=== PATIENT | female | born 1990 | race Caucasian/White ===

== ENCOUNTER 2025-01-07 16:25 | Emergency (ER) | payer OTHER, SELFPAY ==
--- OUTSIDE RECORDS SUMMARY | 2025-01-07 16:30 | XMS_ITS | Clinical Summary ---
Author Organization [facility] Address [address] [place] [address] Care Team Providers Care Fast Food Shift Lead Name Role Phone Mihir Vazquez MD Primary Care Provider [phone] Allergies Active Allergy Reactions Criticality Noted Date Comments Minocycline Hives 07/24/2021 Medications montelukast 10 MG tablet Take 10 mg by mouth daily. 03/05/2021 Active cetirizine 10 MG tablet Take 10 mg by mouth daily. Active Active Problems No known active problems Family History Medical History Relation Comments No Known Problems Father No Known Problems Mother Relation Status Comments Father Alive Mother Alive Social History Tobacco Use Types Packs/Day Years Used Date Smoking Tobacco: Never Smokeless Tobacco: Never Alcohol Use Standard Drinks/Week Comments Yes 6.7 (1 standard drink = 0.6 oz p ure alcohol) Comments No Sex and Gender Information Value Date Recorded Sex Assigned at Not on file Legal Sex Female 4:13 PM CDT Gender Identity Not on file Sexual Orientation Not on file Last Filed Vital Signs Vital Sign Reading Time Taken Comments Blood Pressure 109/63 07/24/2021 12:40 PM CDT Pulse 62 07/24/2021 12:40 PM CDT Temperature 36.3 C (97.3 F) 07/24/2021 12:40 PM CDT Respiratory Rate 16 07/24/2021 12:40 PM CDT Oxygen Saturation 99% 07/24/2021 12:40 PM CDT Inhaled Oxygen Concentration - - Weight 67.6 kg (149 lb) 07/24/2021 12:40 PM CDT Height 165.1 cm (5' 5) 07/24/2021 12:40 PM CDT Body Mass Index 24.79 07/24/2021 12:40 PM CDT Plan of Treatment Health Maintenance Due Date Last Done Comments Annual Physical 1992 Hepatitis C 09/18/2007 DTaP, Tdap and Td Vaccines ( 1 - Tdap) 2008 Hepatitis B Vaccines (1 of 3 - 19+ 3-dose series) 2008 HPV Vaccines (1 - 3-dose SCD M series) 2016 Cervical Cancer Screening Pa p with HPV Testing (Age 30 to 64) Every 5 Years 09/18/2019 Cervical Cancer Screening Pa p Smear (Age 30 to 64) Every 3 Years 04/05/2024 04/05/2021 Cervical Cancer Screening wi th HPV 04/05/2024 COVID-19 Vaccine ( - 2024-2 6 season) 2024 Influenza Adult (#1) 2024 02/27/2021, 03/10/2020, 12/12/2013 Hepatitis A Vaccines Aged Out No long er eligible based on patient's age to complete this topic Meningococcal B Vaccine Aged Out No l onger eligible based on patient's age to complete this topic Meningococcal Vaccine Aged Out No dori ronak eligible based on patient's age to complete this topic Pneumococcal Vaccine: Pediatrics (0 to 5 Years) and At-Risk Patients (6 to 49 Years) Aged Out No longer eligible b ased on patient's age to complete this topic RSV Immunizations Under 20 Months Aged Out No longer eligible b ased on patient's age to complete this topic Insurance [facility] Care Teams Fast Food Shift Lead Relationship Specialty Start Date End Date Mihri Vazquez MD [facility] [place] [address] PCP - General 07/08/13
--- OUTSIDE RECORDS SUMMARY | 2025-01-07 16:30 | XMS_ITS | Clinical Summary ---
[facility] Address [address] [place] [address] Care Team Providers Care Agricultural Economics Professor Name Role Phone Mihir Vazuqez MD Primary Care Provider + Cristiana Pérez MD Unavailable Allergies Active Allergy Reactions Criticality Noted Date Comments Minocycline Hcl Hives Medium 06/14/2018 SEVERE HIVES Oxycodone-Acetaminophen Hives Medium 06/14/2018 ITCHY Medications cetirizine (ZyrTEC) 5 mg chewable tabletIndications: Allergic Rhinitis Take 1 tablet (5 mg total) by mouth daily Active ALPRAZolam (XANAX) 0.25 mg tablet Take 1 tablet (0.25 mg total) by mouth every 8 (eight) hours as needed 4 Active dextroamphetamine- amphetamine (ADDERALL) 15 mg tablet Take 1 tablet (15 mg total) by mouth 2 (two) times a day 4 Active montelukast (SINGULAIR) 5 mg chewable tablet Take 1 tablet (5 mg total) by mouth nightly Active norethindrone-e.es tradioL-iron (Lo Loestrin Fe) 1 mg-10 mcg (24)/10 mcg (2) tablet per tabletIndications: Contraception Take 1 tablet by mouth daily 84 tablet 3 4 Active Active Problems Problem Noted Date Diagnosed Date Oral contraceptive pill surveillance 05/13/2017 Resolved Problems Problem Noted Date Diagnosed Date Resolved Date infant of 40 complet ed weeks of gestation 09/13/2022 09/08/2023 40 weeks gestation of 11/05/2020 09/08/2023 Encounters Date Type Department Care Team Description 01/03/2025 Orders Only [facility] [address] [facility] [address] [place] [address] Cristiana Pérez MD Breast pain, left (Primary Dx) 01/03/2025 Orders Only [facility] [address] [facility] [address] [place] [address] Cristiana Pérez MD Breast pain, left (Primary Dx) 12/07/2024 Telephone [facility] [address] [facility] [address] [place] [address] Cristiana Pérez MD Breast Pain from Last 3 Months Surgical History Surgery Date Site/Laterality Comments AUGMENTATION MAMMAPLASTY 03/09/2014 - 03/08/2015 Medical History Medical History Date Comments UTI (urinary tract infection) Abnormal Pap smear of cervix HPV resolved 10 years ago Social History Tobacco Use Types Packs/Day Years Used Date Smoking Tobacco: Never Smokeless Tobacco: Never AUDIT-C Answer Date Recorded Q1: How often do you have a drink containing alcohol? Never 09/08/2023 Q2: How many drinks containi ng alcohol do you have on a typical day when you are drinking? Patient does not drink Q3: How often do you have si x or more drinks on one occasion? Never 09/08/2023 [place] Depression Scale Answer Date Recorded [place] Depression Scale Total 3 09/13/2022 The thought of harming myself has occurred to me . 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 Gender Identity Not on file Sexual Orientation Not on file Obstetrics History Para Term AB IAB SAB Ectopic Multiple Livin g Live Births 3 2 2 1 0 2 2 Date Outcome GA Total Labor Labor/2nd/3rd Weight Sex Type Anes PTL Laura A1 A5 Name Clin AB 2020 Term 40w 3d 1h 10m 1h 04m/0h 06m 3.475 kg (7 lb 10.6 oz) M Vag-Sp ont Epidur al N Livin g 8 9 POWER S,BOY Roscoe Cassidy MD Delivery Location:[facility] ([facility]) 2022 Term 40w 2d 0h 15m 0h 12m/0h 03m 3.69 kg (8 lb 2.2 oz) M Vagina l Epidur al N Livin g 5 9 POWER S,BOY Roscoe Cassidy MD Complications:None Delivery Location:[facility] ([facility]) Comments:see provider delivery note Last Filed Vital Signs Vital Sign Reading Time Taken Comments Blood Pressure 102/60 09/08/2023 2:18 PM CDT Pulse 70 09/14/2022 8:00 AM CDT Temperature 36.7 C (98.1 F) 09/14/2022 8:00 AM CDT Respiratory Rate 18 09/14/2022 8:00 AM CDT Oxygen Saturation 96% 09/14/2022 8:00 AM CDT Inhaled Oxygen Concentration - - Weight 65.8 kg (145 lb) 09/08/2023 2:18 PM CDT Height 165.1 cm (5' 5) 09/08/2023 2:18 PM CDT Body Mass Index 24.13 09/08/2023 2:18 PM CDT Plan of Treatment Health Maintenance Due Date Last Done Comments Hepatitis C Screening 1989 DTaP/Tdap/Td Vaccine (1 - Tdap) 2000 Varicella Vaccines (1 of 2 - 13+ 2-dose series) 2002 Hepatitis B Screening 09/18/2007 HPV Vaccines (1 - 3-dose SCD M series) 2016 Depression Screening 09/14/2023 09/13/2022 Cervical Cancer Screening 09/07/2024 09/08/2023 Regular Well Visit/Exam 18-64 09/07/2024, 07/30/2018 Covid-19 Vaccine (3 - 2024-2 6 season) 2024 01/11/2021, 12/08/2020 Influenza Vaccine (#1) 2024 , 03/10/2020, 12/12/2013 Pneumococcal vaccine <65 Aged Out No longer eligible based on patient's age to complete this topic Procedures Procedure Name Priority Date/Time Associated Diagnosis Comments PAP AND HPV, REFLEX TO HPV GENOTYPES Routine 09/08/2023 3:34 AM CDT Screening for cervical cancer Screening for human papillomavirus (HPV) from Last 3 Months or Most Recently Relevant to Health Maintenance Results * Pap and HPV, reflex to HPV Genotypes (09/08/2023 3:34 AM CDT) Clinical indication Comment [facility] - 01 Comment:NEGATIVE FOR INTRAEP ITHELIAL LESION OR MALIGNANCY. Specimen adequacy: Comment [facility] - 01 Comment: Satisfactory for evaluation. Endocervical and/or squamous metaplastic cells (endocervical component) are present. Clinician provided ICD10 Comment [facility] - 01 Comment: Z12.4 Z11.51 Performed by Comment [facility] - 01 Comment:Blanche Meadows, Cyto technologist (ASCP) . . [facility] - 01 Note: Comment [facility] - 01 Comment: The Pap smear is a screening test designed to aid in the detection of premalignant and malignant conditions of the uterine cervix. It is not a diagnostic procedure and should not be used as the sole means of detecting cervical cancer. Both false-positive and false-negative reports do occur. Test methodology Comment [facility] - 01 Comment: This liquid based ThinPrep(R) pap test was screened with the use of an image guided system. HPV Aptima Negative Negative [facility] 02 Comment: This nucleic acid amplification test detects fourteen high-risk HPV types (16,18,31,33,35,39,45,51,52,56,58,59,66,68) without differentiation. HPV Genotype Reflex Comment [facility] - 01 Comment:Criteria not met, HP V Genotype not performed. Thin prep 09/08/2023 3:34 AM CDT 09/09/2023 Narrative [facility] - 09/11/2023 9:08 AM CDT Performed at: 01 - [facility] [address] [place], [place] [id number] Data Center Manager: Tamara Mcallister MD, Phone: [phone] Performed at: - [facility] [address] [place], [place] [id number] Data Center Manager: Tamara Mcallister MD, Phone: [phone] Specimen Comment: Source.............Cervix;Endocervix Specimen Comment: No. of containers..01 ThinPrep Vial us Cristiana Pérez MD LAB CYTOLOGY ORDERABLES F inal Result [facility] - 01 [facility] 02 from Last 3 Months or Most Recently Relevant to Health Maintenance Insurance PENDING SALE TO [facility] [employer] CHOICE [facility] CHOICE [facility] H[facility]/PPO Address: [address] [address] [place] [address] [facility]PP[facility] Address: [address] [address] [place] [address] Advance Directives For more information, please contact: [phone] * Full Code (Latest Code Status on File) Date Activated Date Inactivated Comments 09/13/2022 7:34 AM 09/14/2022 5:14 PM * Full Code Date Activated Date Inactivated Comments 09/13/2022 1:56 AM 09/13/2022 7:34 AM Full CPR in ca se of cardiopulmonary arrest * Full Code Date Activated Date Inactivated Comments 11/05/2020 9:20 PM 11/07/2020 3:06 PM * Full Code Date Activated Date Inactivated Comments 11/05/2020 1:11 AM 11/05/2020 9:20 PM Full CPR in case of cardiopulmonary arrest Care Teams Agricultural Economics Professor Relationship Specialty Start Date End Date Mihir Vazquez MD PCP - General Family Medicine 06/17/18 Cristiana Pérez MD Consulting Physician Obstetrics and Gynecology 11/06/20
[2025-01-07 16:49] VITALS: BP 110/70; PULSE 88; RESP 16; TEMP 36.3; O2SAT 100
--- NOTE | 2025-01-07 17:00 | ED.GENADULT ---
HPI - General Adult General Chief complaint: Urogenital-Female Stated complaint: UTI Time Seen by Provider: 01/07/25 17:00 Source: patient Mode of arrival: ambulatory Limitations: no limitations History of Present Illness HPI narrative: 34-year-old female patient presents to [facility] with complaints of urinary and vaginal symptoms. Patient states last 2 weeks she has had some milky white vaginal discharge, vaginal itching and at time she has had increase in frequency of her urination but denies any pain with urination. patient states she noticed 2 spots of blood in her urine yesterday and was concerned however she states her last menstrual cycle was approximately 1 month ago and is due for her menstrual cycle any day now. Denies fevers body aches or chills. Patient states she recently did stop taking her probiotics. Denies any abdominal pain but states she does have lower back pain at times. Denies chest pain shortness of breath. Denies fevers body aches or chills. Related Data Home Medications ?Medication ?Instructions ?Recorded ?Confirmed ?Last Taken ?Type dextroamphetamine-amphetamine 15 01/07/25 Unknown History mg tablet montelukast 10 mg tablet mg 01/07/25 Unknown History tretinoin 0.05 % topical cream applic topical 01/07/25 Unknown History Allergies Allergy/AdvReac Type Severity Reaction Status Date / Time minocycline Allergy Mild Rash Verified 01/07/25 16:49 Review of Systems Review of Systems: CONSTITUTIONAL: Denies fever, chills, or sweats. EYES: Denies visual changes, redness, or discharge. ENT: Denies rhinorrhea, congestion, sore throat, or otalgia. CARDIOVASCULAR: Denies chest pain, palpitations, or edema. RESPIRATORY: Denies cough or dyspnea. GASTROINTESTINAL: Denies abdominal pain, nausea, vomiting, or diarrhea. GENITOURINARY: Positive dysuria , positive hematuria. positive milky white vaginal discharge and vaginal itching SKIN: Denies rash or itching. MUSCULOSKELETAL: Denies back pain, joint pain, or myalgia. NEUROLOGIC: Denies headache, numbness, or weakness. PSYCHIATRIC: Denies anxiety or depression. PMFSH Comments At the time of my signature I agree with nursing past medical history, surgical, social, and family history. There is no relevant family history pertinent to the presenting complaint. Exam Narrative: GENERAL: Well-appearing, well-nourished, and in no acute distress. HEAD: Normocephalic, atraumatic. EYES: PERRLA and EOMI. ENT: Nares clear, no rhinorrhea or epistaxis. Mucous membranes moist. Posterior pharynx with no erythema, tonsillar enlargement, exudates or lesions present. Bilateral TMs are clear no erythema or foreign bodies the canal. NECK: Supple. No lymphadenopathy CHEST: Clear to auscultation. No respiratory distress. HEART: Regular rate and rhythm. No murmur heard. Normal peripheral pulses. ABDOMEN: Soft, flat, nondistended. No guarding, rebound tenderness, or rigid. No pulsatilla masses. Bowel sounds present in all four quadrants. No organomegaly. Negative Menard?s sign. No periumbicial tenderness. No Supra public tenderness or distension. Good femoral pulses bilaterally. No hernia noted. No scars or surface trauma. : Patient has refused vaginal exam at this time. EXTREMITIES: Normal range of motion. No edema. SKIN: Warm, dry, no rash. NEURO: No focal deficits. Alert and oriented x3. Course Course Level of Care: Express Care Visit Vital Signs Vital signs: Vital Signs Temperature 36.3 C L 01/07/25 16:49 Pulse Rate 88 01/07/25 16:49 Respiratory Rate 16 01/07/25 16:49 Blood Pressure 110/70 01/07/25 16:49 Pulse Oximetry 100 01/07/25 16:49 Oxygen Delivery Room Air 01/07/25 16:49 Temperature 36.3 C L 01/07/25 16:49 Pulse Rate 88 01/07/25 16:49 Respiratory Rate 16 01/07/25 16:49 Blood Pressure 110/70 01/07/25 16:49 Pulse Oximetry 100 01/07/25 16:49 Oxygen Delivery Room Air 01/07/25 16:49 Vital signs reviewed. Medical Decision Making MDM Narrative Medical decision making narrative: Discussed with patient that the urine dip did not show any evidence of a UTI and based on her symptoms I think this is more likely possibly yeast infection or bacterial vaginosis. Patient has opted not to do a vaginal exam at this time however discussing with her treatment options we she has decided to go ahead and be treated for bacterial vaginosis and yeast infection at this time. Discussed with patient we will give her an antibiotic for the bacterial vaginosis and that she can take the antifungal after the completion of the bacterial vaginosis. Highly recommend patient start back on her probiotics after the her antibiotics are completed. Discussed with patient she continues to have symptoms highly recommend that she follow-up with her OBGYN for further testing. Differential Diagnosis Differential Diagnosis: Differential diagnosis: Uncomplicated lower UTI, uncomplicated UTI, pyelonephritis Vital Signs Vital Signs: Vital Signs Temperature 36.3 C L 01/07/25 16:49 Pulse Rate 88 01/07/25 16:49 Respiratory Rate 16 01/07/25 16:49 Blood Pressure 110/70 01/07/25 16:49 Pulse Oximetry 100 01/07/25 16:49 Oxygen Delivery Room Air 01/07/25 16:49 Temperature 36.3 C L 01/07/25 16:49 Pulse Rate 88 01/07/25 16:49 Respiratory Rate 16 01/07/25 16:49 Blood Pressure 110/70 01/07/25 16:49 Pulse Oximetry 100 01/07/25 16:49 Oxygen Delivery Room Air 01/07/25 16:49 Lab Data Labs: Lab Results 01/07/25 01/07/25 Range/Units 17:02 17:05 POC Urine Color Yellow POC Urine Clarity Clear POC Urine pH 6.0 POC Ur Specif [place] 1.005 POC Urine Protein Negative (Negative) POC Ur Glucose (UA) Negative (Negative) POC Urine Ketones Trace (Negative) POC Urine Blood Negative (Negative) POC Urine Nitrite Negative (Negative) POC Urine Bilirubin Negative (Negative) POC Urine Urobilinogen 0.2 POC U Leukocyte Esteras Negative (Negative) POC Urine HCG, Qual Negative (Negative) Critical Care Time Critical Care Time Critical Care Time: No Discharge Plan Discharge Clinical Impression: Vaginal discharge, Itching in the vaginal area, Dysuria Patient Disposition: Home Condition: Stable Instructions: Antibiotic Form, Bacterial Vaginosis (ED) Additional Instructions: Bacterial vaginosis is a condition in which there is excess growth of certain bacteria that are normally found in the vagina. Symptoms often include abnormal nowak or yellow discharge with a fishy odour. It is not considered an infection that is spread through sexual contact. Symptoms can be annoying and uncomfortable. But bacterial vaginosis does not usually cause other health problems. However, in some cases it can lead to more serious issues. While bacterial vaginosis may go away on its own, most doctors use antibiotics to treat it. You may have been prescribed pills or vaginal cream. With treatment, bacterial vaginosis usually clears up in 5 to 7 days. Follow-up care is a tan part of your treatment and safety.?Be sure to make and go to all appointments, and call your doctor or nurse advice line (811?in most provinces and territories) if you are having problems. It's also a good idea to know your test results and keep a list of the medicines you take. How can you care for yourself at home? Take your antibiotics as directed. Do not stop taking them just because you feel better. You need to take the full course of antibiotics.Do not eat or drink anything that contains alcohol if you are taking metronidazole.Keep using your medicine if you start your period. Use pads instead of tampons while using a vaginal cream or suppository. Tampons can absorb the medicine.Wear loose cotton clothing. Do not wear nylon and other materials that hold body heat and moisture close to the skin.Do not scratch. Relieve itching with a cold pack or a cool bath.Do not wash your vulva more than once a day. Use plain water or a mild, unscented soap. Do not douche. When should you call for help? Call your doctor or nurse advice line now?or seek immediate medical care if: You have a fever.You have new or worse pain in your vagina or pelvis. Watch closely for changes in your health, and be sure to contact your doctor or nurse advice line if: You have new or worse vaginal itching or discharge.You have unexpected vaginal bleeding.You are not getting better as expected.Your symptoms return after you finish the course of your medicine Patient Language: Mongolian Prescriptions: New metronidazole 500 mg tablet 500 mg PO BID 7 Days Qty: 14 0RF fluconazole 150 mg tablet 150 mg PO ONCE 1 Days Qty: 1 0RF Rx Instructions: Take once all antibiotics have been completed. No Action tretinoin 0.05 % cream TOPICAL dextroamphetamine-amphetamine 15 mg tablet montelukast 10 mg tablet Follow-up/Referrals: George,Mihir Quintanilla MD [Primary Care Provider] Time of Disposition: 17:19
[2025-01-07 17:04] LABS: EDUAAPPEAR Clear; EDUABILI Negative (Negative); EDUABLOOD Negative (Negative); EDUACOLOR1 Yellow; EDUAGLUCOSE Negative (Negative); EDUAKETONE Trace (Negative); EDUALEUKO Negative (Negative); EDUANITRATE Negative (Negative); EDUAPH 6.0; EDUAPROTEIN Negative (Negative); EDUASPGRAVITY 1.005; EDUAUROBILI 0.2
[2025-01-07 17:07] LABS: BEDSIDEPREGUCG Negative (Negative)
== END 2025-01-07 17:25 | disposition home or self-care (01) ==
PROVIDERS: Emergency Provider Nurse Practitioner Family; PCP Family Medicine
DX: N89.8 Other specified noninflammatory disorders of vagina (principal); R30.0 Dysuria; F90.9 Attention-deficit hyperactivity disorder, unspecified type; Z86.16 Personal history of COVID-19; Z87.440 Personal history of urinary (tract) infections
CPT/HCPCS: 81003; 81025; 87086; 99203; G0463